=== PATIENT | male | born 1985 | race Caucasian/White ===

== ENCOUNTER 2019-08-08 20:13 | Emergency (ER) | payer BC ==
[~2019-08-08] VITALS: Ht 165.1 cm; Wt 72.6 kg
--- NOTE | 2019-08-08 20:29 | NUR ---
ED Nurse Note: pt presents to ED c/o a GARCIA and neck px. pt reports getting migraines and usually takes imitrex and the pain goes away but when he took it on , the migraine improved but did not fully go away. pt also reports nausea that he went to see his PCP for on and was prescribed zofran that he has not taken yet. pt reports 6/10 neck px that worsens with movement and a a frontal GARCIA that worsens to a 9/10 when he coughs which is something he has never experienced in the past.
[2019-08-08] MEDS ORDERED: Metoclopramide 10mg/2ml Inj IVP ONE (20:45)
[2019-08-08] MEDS ORDERED: DiphenhydrAMINE 50mg/ml Inj IVP ONE (20:45)
[2019-08-08] MEDS ORDERED: Ketorolac 30mg Inj IV ONE (20:45)
[2019-08-08 20:54] LABS: BASOPHILS % (AUTO) 0.4 % (0.0-2.0); EOSINOPHILS % (AUTO) 0.2 % (0.0-3.0); HEMATOCRIT 43.7 % (42.0-52.0); HEMOGLOBIN 15.6 G/DL (14.2-18.0); MEAN CORPUSCULAR VOLUME 85 FL (80-99); MONOCYTES % (AUTO) 9.7 % (1.0-10.0); NEUTROPHILS % (AUTO) 68.7 % (45.0-75.0); PLATELET COUNT 221 K/UL (150-450); RED BLOOD COUNT 5.13 M/UL (4.70-6.10); RED CELL DISTRIBUTION WIDTH 9.8 % (11.6-14.8); WHITE BLOOD COUNT 5.5 K/UL (4.8-10.8)
[2019-08-08 20:55] VITALS: BP 113/89
--- NOTE | 2019-08-08 20:57 | Emergency Room Report ---
History of Present Illness General Chief Complaint: Headache Source: Patient Present Illness HPI Patient presents with a headaches of these had since . Started off that he felt he just had a migraine. He took Imitrex. The pain was somewhat better but he still feels the pain at this time. He is seen his doctor earlier that day because he has had some intermittent episodes of nausea and vomiting during the night. His doctor is ordered some other testing to be done including H. pylori. This headache is different from his usual migraines and that it has lasted 3 days and he also has pain that is increased when he coughs and also when he looks upwards. He denies any weakness. He has slight amount of neck tenderness also on the right lateral muscle. Headache was gradual onset. He has not had his flu shot this year yet. He rates the pain 6/10, pressure and aching more in his right forehead nonradiating. He feels it also behind his eyes. In yarsanism is oriental orthodox noted that he did not look well. No fevers, chills, sore throat, chest pain, palpitations, diarrhea, dysuria, shortness of breath, rashes, depression, anxiety, dizziness. 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: PMH: Agreed; PSxH: Agreed Nursing Documentation-[facility] Past Medical History: No Stated History Review of Systems All Other Systems: negative except mentioned in HPI Physical Exam Vital Signs Date Time Temp Pulse Resp B/P (MAP) Pulse Ox O2 Delivery O2 Flow Rate FiO2 08/08/19 20:15 99.3 102 16 113/89 (97) 97 Room Air Sp02 EP Interpretation: reviewed, normal General Appearance: well appearing, no apparent distress, GCS 15 Head: normocephalic, atraumatic Eyes: bilateral eye normal inspection, bilateral eye PERRL, bilateral eye EOMI ENT: normal pharynx, moist mucus membranes, other - No sinus tenderness Neck: supple, no meningismus, tender - r lateral muscle mass Respiratory: lungs clear, normal breath sounds Cardiovascular #1: regular rate, rhythm Cardiovascular #2: 2+ radial (R) Gastrointestinal: normal inspection, normal bowel sounds, non tender, no mass, non-distended Musculoskeletal: back normal, gait/station normal, normal range of motion Neurologic: alert, oriented x3, 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 Differential includes sinusitis, viral syndrome, influenza, atypical migraine, tension headache, bleed vasculitis, amongst others. Based on the history and the onset bleed is less likely. Evaluation with EKG, CXR, CT the head and labs. EKG normal. CT normal. Chest x-ray normal. CBC and CMP normal. Discussed results with patient. Pain completely resolved. Patient stable for outpatient observation and treatment. Laboratory Tests Test 08/08/19 20:35 White Blood Count 5.5 K/UL (4.8-10.8) Red Blood Count 5.13 M/UL (4.70-6.10) Hemoglobin 15.6 G/DL (14.2-18.0) Hematocrit 43.7 % (42.0-52.0) Mean Corpuscular Volume 85 FL (80-99) Mean Corpuscular Hemoglobin 30.4 PG (27.0-31.0) Mean Corpuscular Hemoglobin Concent 35.7 G/DL (32.0-36.0) Red Cell Distribution Width 9.8 % (11.6-14.8) L Platelet Count 221 K/UL (150-450) Mean Platelet Volume 6.6 FL (6.5-10.1) Neutrophils (%) (Auto) 68.7 % (45.0-75.0) Lymphocytes (%) (Auto) 21.0 % (20.0-45.0) Monocytes (%) (Auto) 9.7 % (1.0-10.0) Eosinophils (%) (Auto) 0.2 % (0.0-3.0) Basophils (%) (Auto) 0.4 % (0.0-2.0) Prothrombin Time 10.4 SEC (9.30-11.50) Prothrombin Time INR 1.0 (0.9-1.1) PTT 26 SEC (23-33) Sodium Level 139 MMOL/L (136-145) Potassium Level 3.7 MMOL/L (3.5-5.1) Chloride Level 100 MMOL/L (98-107) Carbon Dioxide Level 29 MMOL/L (21-32) Anion Gap 10 mmol/L (5-15) Blood Urea Nitrogen 13 mg/dL (7-18) Creatinine 1.1 MG/DL (0.55-1.30) Estimate Glomerular Filtration Rate > 60 mL/min (>60) Glucose Level 104 MG/DL (74-106) Calcium Level 9.3 MG/DL (8.5-10.1) Total Bilirubin 0.7 MG/DL (0.2-1.0) Aspartate Amino Transferase (AST) 24 U/L (15-37) Alanine Aminotransferase (ALT) 37 U/L (12-78) Alkaline Phosphatase 93 U/L (46-116) Total Creatine Kinase 149 U/L (26-308) Total Protein 8.1 G/DL (6.4-8.2) Albumin 4.3 G/DL (3.4-5.0) Globulin 3.8 g/dL Albumin/Globulin Ratio 1.1 (1.0-2.7) Microbiology Date/Time Source Procedure Growth Status 08/08/19 20:35 Nose - Final Complete 08/08/19 20:35 Nose - Final Complete EKG Diagnostic Results Rate: normal Rhythm: NSR ST Segments: no acute changes - Right axis Rhythm Strip Diag. Results EP Interpretation: yes Rhythm: NSR, no PVC's, no ectopy Chest X-Ray Diagnostic Results Chest X-Ray Diagnostic Results : Chest X-Ray Ordered: Yes # of Views/Limited/Complete: 1 View Indication: Other EP Interpretation: Yes Interpretation: no consolidation, no effusion, no pneumothorax Impression: No acute disease Electronically Signed by: Electronically signed by Kameron Asif MD CT/MRI/US Diagnostic Results CT/MRI/US Diagnostic Results : Imaging Test Ordered: Head Impression No bleed or lesions. No air-fluid levels in the sinuses. Last Vital Signs Date Time Temp Pulse Resp B/P (MAP) Pulse Ox O2 Delivery O2 Flow Rate FiO2 08/08/19 21:55 99.3 85 16 115/88 97 Room Air Status: improved Disposition: HOME, SELF-CARE Condition: Improved Scripts Famotidine (PEPCID AC) 20 Mg Tablet 20 MG PO DAILY, #20 TAB Prov: Kameron Asif MD 08/08/19 Kameron Asif MD Aug 08, 2019 20:57
--- NOTE | 2019-08-08 21:02 | NUR ---
ED Nurse Note: pt being transported down to CT via wheelchair. pt is in no acute diistress at this time
[2019-08-08 21:07] LABS: ANION GAP 10 mmol/L (5-15); BLOOD UREA NITROGEN 13 mg/dL (7-18); CALCIUM 9.3 MG/DL (8.5-10.1); CARBON DIOXIDE 29 MMOL/L (21-32); CHLORIDE 100 MMOL/L (98-107); CREATININE 1.1 MG/DL (0.55-1.30); POTASSIUM 3.7 MMOL/L (3.5-5.1); SODIUM 139 MMOL/L (136-145)
--- NOTE | 2019-08-08 21:11 | NUR ---
ED Nurse Note: pt has returned from CT, CXR being done at bedside
[2019-08-08 21:12] LABS: ALANINE AMINOTRANSFERASE 37 U/L (12-78); ALBUMIN 4.3 G/DL (3.4-5.0); ALBUMIN/GLOBULIN RATIO 1.1 (1.0-2.7); ALKALINE PHOSPHATASE 93 U/L (46-116); ASPARTATE AMINO TRANSFERASE 24 U/L (15-37); BILIRUBIN,TOTAL 0.7 MG/DL (0.2-1.0); CREATINE KINASE 149 U/L (26-308)
--- NOTE | 2019-08-08 21:38 | Diagnostic Imaging Report ---
CT HEAD WITHOUT CONTRAST INDICATION: Reason For Exam: H/A Technique: Continuous helical CT scanning of the head was performed without intravenous contrast material. Axial and coronal 5 mm sections were generated. Radiation dose was minimized using automated exposure control DOSE: Total Dose Length Product - DLP 1274.[address] Dose Index - CTDIvol(s) 60 mGy. COMPARISON: None available FINDINGS: There is no acute intracranial hemorrhage, mass effect or cortical edema. The ventricles, cisterns and sulci are normal for age. Visualized mastoid air cells and paranasal sinuses are unremarkable. No focal lesions of the bony calvarium or soft tissues of the scalp are seen. IMPRESSION: No evidence of acute intracranial hemorrhage, mass effect or cortical edema. MRI may be obtained for more sensitive evaluation as clinically indicated. These findings are concordant with the [facility] preliminary report. The CT scanner at [facility] is accredited by the [employer] and the scans are performed using protocols designed to limit radiation exposure to as low as reasonably achievable to attain images of sufficient resolution adequate for diagnostic evaluation.
[2019-08-08] MEDS ORDERED: PEPCID AC20 M2 PO (21:47)
[2019-08-08 21:55] VITALS: BP 115/88
[2019-08-08] MEDS ORDERED: IMITREX5 MG NS (21:55)
[2019-08-08] MEDS ORDERED: VENLAFAXINE HCL25 MG ORAL (21:55)
--- NOTE | 2019-08-08 21:55 | NUR ---
ER DISCHARGE NOTE: Patient is cleared to be discharged per ERMD, pt is aox4, on room air, with stable vital signs. pt was given dc and prescription instructions, pt was able to verbalize understanding, pt id band and iv site removed without complications. pt is able to ambulate with steady gait. pt took all belongings.
--- NOTE | 2019-08-09 10:45 | Diagnostic Imaging Report ---
Indication: Reason For Exam: H/A Technique: Single AP view of the chest. Comparison: None. Findings: The cardiomediastinal silhouette is within normal limits. There is no focal consolidation, pneumothorax or pleural effusion. Osseous structures demonstrate no acute abnormality. IMPRESSION: No radiographic evidence of acute cardiac pulmonary process.
--- NOTE | 2019-08-11 07:29 | Cardiology Report ---
APPROVED REPORT EKG Measurement Heart [id number] MD [id number] Normal sinus rhythm Rightward axis Borderline ECG
== END 2019-08-08 21:55 | disposition home or self-care (01) ==
LOC: EMR 20:53
DX: R51 Headache (principal); R11.10 Vomiting, unspecified; Z88.0 Allergy status to penicillin
CPT/HCPCS: 36415; 70450; 71045; 80053; 82550; 85025; 85610; 85730; 86710; 93005; 96361; 96374; 96375; 99284; J1200; J1885; J2765

== ENCOUNTER 2019-08-09 17:47 | Inpatient (IN) | payer BC ==
[~2019-08-09] VITALS: Ht 170.2 cm; Wt 68.0 kg
[~2019-08-09 17:47] MED LIST: IMITREX5 MG NS; PEPCID AC20 M2 PO; VENLAFAXINE HCL25 MG ORAL
[2019-08-09 17:58] VITALS: BP 125/80
--- NOTE | 2019-08-09 17:58 | NUR ---
ED Nurse Note: Patient came back to the ER c/o headache since 08/06/2019; denies any injury. Pt rates pain at 4/10. Pt is A&O x4, V/S stable with no s/s of acute distress noted at this time. Blood and urine sent down to the lab.
[2019-08-09] MEDS ORDERED: Metoclopramide 10mg/2ml Inj IVP ONE (18:00)
[2019-08-09] MEDS ORDERED: DiphenhydrAMINE 50mg/ml Inj IVP ONE (18:00)
[2019-08-09] MEDS ORDERED: Gadavist 7.5mMol/7.5ml vial IV PRN ×2 (18:00→18:15)
--- NOTE | 2019-08-09 18:17 | Emergency Room Report ---
History of Present Illness General Chief Complaint: Headache Source: Patient Present Illness HPI Patient was seen yesterday with a headache that was unusual for him. He has a history of migraines. This headache started 4 days ago. He initially took Imitrex that helped but the headache persisted. He has had intermittent vomiting. He also had a cough. He felt clammy but not documented any fevers. He took no medications aside from the Imitrex. Usually his migraines are improved after 1 day. This headache has persisted. It had gradual onset. He also has some neck discomfort on the right side. When he coughs the headache is worse and also when he moves his eyes upwards there is increased pain. It is mainly over his right eye where he feels the discomfort deep to his forehead. At this time the pain is 4/10. He has had continued episodes of vomiting during the day today also. There is no hematemesis and no diarrhea. The cough is nonproductive. No hemoptysis. No calf pain or edema. The patient was evaluated yesterday. He was improved with Reglan, Benadryl and Toradol. CT of the head and laboratory were unremarkable. EKG was also significant only for right axis deviation. Chest x-ray was unremarkable. The patient has used an inhaler in the past but does not hear himself wheezing recently. He has been waking intermittently with nausea and vomiting. His doctor has scheduled testing for H pylori next week. No recent travel, mosquito bites. No one in his buddhism with known infectious processes. No family h/o arthritis. This is the history from yesterday: Patient presents with a headaches of these had since . Started off that he felt he just had a migraine. He took Imitrex. The pain was somewhat better but he still feels the pain at this time. He is seen his doctor earlier that day because he has had some intermittent episodes of nausea and vomiting during the night. His doctor is ordered some other testing to be done including H. pylori. This headache is different from his usual migraines and that it has lasted 3 days and he also has pain that is increased when he coughs and also when he looks upwards. He denies any weakness. He has slight amount of neck tenderness also on the right lateral muscle. Headache was gradual onset. He has not had his flu shot this year yet. In buddhism is scientology noted that he did not look well. No fevers, chills, sore throat, chest pain, palpitations, diarrhea, dysuria, abdominal pain, shortness of breath, rashes, depression, anxiety, dizziness. No risk factors for cardiac disease known. 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: PMH: Agreed; PSxH: Agreed Nursing Documentation-PM[facility] Past Medical History: No Stated History Review of Systems All Other Systems: negative except mentioned in HPI Physical Exam Vital Signs Date Time Temp Pulse Resp B/P (MAP) Pulse Ox O2 Delivery O2 Flow Rate FiO2 08/09/19 17:56 98.4 95 15 125/80 (95) 95 Room Air Sp02 EP Interpretation: reviewed, normal General Appearance: well appearing, no apparent distress, GCS 15 Head: normocephalic Eyes: bilateral eye normal inspection, bilateral eye PERRL, bilateral eye EOMI - Pain with looking upwards ENT: normal pharynx, normal voice, moist mucus membranes Neck: supple, no meningismus, tender - Left muscles Respiratory: lungs clear, normal breath sounds Cardiovascular #1: regular rate, rhythm Cardiovascular #2: 2+ radial (R) - good capillary fill Gastrointestinal: normal inspection, normal bowel sounds, non tender, no mass, non-distended Musculoskeletal: back normal, gait/station normal, normal range of motion Neurologic: alert, oriented x3, narrow fabrics weaver III-XII nml as tested, motor strength/tone normal, DTRs symmetric, sensory intact, cerebellar normal, normal gait, speech normal Psychiatric: mood/affect normal Skin: warm/dry, other - R shoulder with minimal rash - maculopapular - streak- like distribution Procedures Critical Care Time Critical Care Time Total Critical Care Time: 60 min bedside evaluation and treatment excludes procedures (EKG). Reason for critical care: + troponin, unexplained headache Possible complications: hypotension, hypertension, [place], shock, arrhythmias, metabolic acidosis, end organ damage, respiratory failure. Interventions: MRA neck, brain, aspirin, Reglan, Benadryl, Tylenol, repeated exams, attempt to transfer and discussions with multiple doctors, radiology aide and .. Course: Patient recalled to ED due to continued headache. Evaluation with repeat labs and MRA neck and brain. + troponin - aspirin given and assessment for possible other treatments.. Attempt to transfer to [facility] ( several calls). Discussion with patient's floor winder. Discussion with PMD. Discussion with and patient. Review of EKG and MRAs with patient and . Repeat evaluations. Questionable R subclavian process evaluated with radiologist tech and radiologist. Repeat evaluation of patient. Discussion with admitting MD. Consultations: nursing staff, radiology aide, admitting MD, [facility] Transfer, patient's PMD, patient's floor winder Performed by: Dr. Asif Tolerated well condition = serious Medical Decision Making Diagnostic Impression: Primary Impression: Elevated troponin Additional Impressions: Headache Qualified Codes: R51 - Headache Ethmoid sinusitis Qualified Codes: J32.2 - Chronic ethmoidal sinusitis ER Course Patient presents with persistent headache associated with cough and vomiting. Differential includes viral syndrome, sinusitis, meningitis, encephalitis amongst others. Patient will be reevaluated with labs and also an MRI of the brain and neck are ordered. The patient will be given Reglan and Benadryl. Considerations for possible lumbar puncture. Called with + troponin. Aspirin ordered. Repeat EKG. Metoprolol not indicated ( doubt angina or occlusive phenomena). Also will withhold heparin/Lovenox as headache and possible vasculitis. EKG was normal sinus rhythm nonspecific ST-T wave changes somewhat rightward axis. With elevated C reactive protein and near normal ESR, infectious process more likely than vasculitis. Steroids not indicated. Patient with 3/10 pain at this time. Tylenol given. Attempt to transfer to [facility]. Discussed with patient's floor winder and primary physician. Suggestion for D- dimer. I declined as I expect it to be positive and patient without symptoms or findings suggestive of PE or clot. Discussion findings with and patient. Discussed in detail with Dr. Baugh. MRA brain with ethmoid sinusitis. MRA neck, no vascular disease. (Discussed abnormality of R subclavian artery with radiologist. [place] to be artifact. Patient and environmental field technician report that with injection of dye, patient had R wrist/ base of thumb pain which resolved spontaneously. Repeat exam with normal pulses and capillary fill R hand.) Lumbar puncture not indicated due to exam and MRA findings. Headache most likely due to ethmoid sinusitis. Discussed treatment with patient and . Antibiotics not indicated. BC and lactate ordered. Repeat troponin ordered. Elevated but trending downwards. Admit telemetry. Laboratory Tests Test 08/09/19 17:55 08/09/19 22:32 White Blood Count 5.2 K/UL (4.8-10.8) Red Blood Count 5.11 M/UL (4.70-6.10) Hemoglobin 15.6 G/DL (14.2-18.0) Hematocrit 43.4 % (42.0-52.0) Mean Corpuscular Volume 85 FL (80-99) Mean Corpuscular Hemoglobin 30.6 PG (27.0-31.0) Mean Corpuscular Hemoglobin Concent 36.0 G/DL (32.0-36.0) Red Cell Distribution Width 10.4 % (11.6-14.8) L Platelet Count 241 K/UL (150-450) Mean Platelet Volume 6.6 FL (6.5-10.1) Neutrophils (%) (Auto) 62.6 % (45.0-75.0) Lymphocytes (%) (Auto) 24.5 % (20.0-45.0) Monocytes (%) (Auto) 11.5 % (1.0-10.0) H Eosinophils (%) (Auto) 1.2 % (0.0-3.0) Basophils (%) (Auto) 0.3 % (0.0-2.0) Erythrocyte Sedimentation Rate 23 MM/HR (0-15) H Prothrombin Time 10.2 SEC (9.30-11.50) Prothrombin Time INR 1.0 (0.9-1.1) PTT 28 SEC (23-33) Urine Color Yellow Urine Appearance Clear Urine pH 8 (4.5-8.0) Urine Specific [place] 1.015 (1.005-1.035) Urine Protein Negative (NEGATIVE) Urine Glucose (UA) Negative (NEGATIVE) Urine Ketones Negative (NEGATIVE) Urine Blood Negative (NEGATIVE) Urine Nitrite Negative (NEGATIVE) Urine Bilirubin Negative (NEGATIVE) Urine Urobilinogen Normal MG/DL (0.0-1.0) Urine Leukocyte Esterase Negative (NEGATIVE) Sodium Level 140 MMOL/L (136-145) Potassium Level 3.7 MMOL/L (3.5-5.1) Chloride Level 103 MMOL/L (98-107) Carbon Dioxide Level 27 MMOL/L (21-32) Anion Gap 10 mmol/L (5-15) Blood Urea Nitrogen 12 mg/dL (7-18) Creatinine 1.0 MG/DL (0.55-1.30) Estimate Glomerular Filtration Rate > 60 mL/min (>60) Glucose Level 91 MG/DL (74-106) Calcium Level 9.2 MG/DL (8.5-10.1) Total Bilirubin 0.7 MG/DL (0.2-1.0) Aspartate Amino Transferase (AST) 28 U/L (15-37) Alanine Aminotransferase (ALT) 42 U/L (12-78) Alkaline Phosphatase 89 U/L (46-116) Total Creatine Kinase 116 U/L (26-308) Troponin I 0.991 ng/mL (0.000-0.056) 0.582 ng/mL (0.000-0.056) C-Reactive Protein, Quantitative 4.0 mg/dL (0.00-0.90) H Total Protein 7.7 G/DL (6.4-8.2) Albumin 4.0 G/DL (3.4-5.0) Globulin 3.7 g/dL Albumin/Globulin Ratio 1.1 (1.0-2.7) EKG Diagnostic Results Rate: normal Rhythm: NSR ST Segments: no acute changes ASA given to the pt in ED: Yes Rhythm Strip Diag. Results EP Interpretation: yes Rhythm: NSR, no PVC's, no ectopy CT/MRI/US Diagnostic Results CT/MRI/US Diagnostic Results #1: Imaging Test Ordered: CT head yesterday Impression Negative for mass, mass-effect or intracranial hemorrhage. Negative for mastoid effusions or air fluid levels in the paranasal sinuses. CT/MRI/US Diagnostic Results #2: Imaging Test Ordered: MRA neck Impression carotids, vertebrals no dissection CT/MRI/US Diagnostic Results #3: Imaging Test Ordered: MRA brain Impression No acute infarct hemorrhage or hydrocephalus. Mild ethmoid sinus mucosal disease. Last Vital Signs Date Time Temp Pulse Resp B/P (MAP) Pulse Ox O2 Delivery O2 Flow Rate FiO2 08/09/19 22:30 98.4 82 15 135/88 98 Room Air Status: improved Disposition: ADMITTED INPATIENT Condition: Serious Kameron Asif MD Aug 09, 2019 18:17
[2019-08-09 18:37] LABS: BILIRUBIN, URINE NEGATIVE (NEGATIVE); GLUCOSE, URINE (UA) NEGATIVE (NEGATIVE); KETONES,URINE NEGATIVE (NEGATIVE); LEUKOCYTE ESTERASE ,URINE NEGATIVE (NEGATIVE); NITRITE,URINE NEGATIVE (NEGATIVE); PH,URINE 8 (4.5-8.0); PROTEIN,URINE NEGATIVE (NEGATIVE); UROBILINOGEN,URINE NORMAL MG/DL (0.0-1.0)
[2019-08-09 18:41] LABS: APPEARANCE,URINE CLEAR; COLOR,URINE YELLOW
[2019-08-09 18:43] LABS: ANION GAP 10 mmol/L (5-15); BLOOD UREA NITROGEN 12 mg/dL (7-18); CALCIUM 9.2 MG/DL (8.5-10.1); CARBON DIOXIDE 27 MMOL/L (21-32); CHLORIDE 103 MMOL/L (98-107); POTASSIUM 3.7 MMOL/L (3.5-5.1); SODIUM 140 MMOL/L (136-145)
[2019-08-09 18:47] LABS: ALANINE AMINOTRANSFERASE 42 U/L (12-78); ALBUMIN/GLOBULIN RATIO 1.1 (1.0-2.7); ALKALINE PHOSPHATASE 89 U/L (46-116); ASPARTATE AMINO TRANSFERASE 28 U/L (15-37); BILIRUBIN,TOTAL 0.7 MG/DL (0.2-1.0); CREATINE KINASE 116 U/L (26-308)
[2019-08-09 18:49] LABS: BASOPHILS % (AUTO) 0.3 % (0.0-2.0); EOSINOPHILS % (AUTO) 1.2 % (0.0-3.0); HEMATOCRIT 43.4 % (42.0-52.0); HEMOGLOBIN 15.6 G/DL (14.2-18.0); LYMPHOCYTES % (AUTO) 24.5 % (20.0-45.0); MEAN CORPUSCULAR VOLUME 85 FL (80-99); MONOCYTES % (AUTO) 11.5 % (1.0-10.0); NEUTROPHILS % (AUTO) 62.6 % (45.0-75.0); PLATELET COUNT 241 K/UL (150-450); RED BLOOD COUNT 5.11 M/UL (4.70-6.10); RED CELL DISTRIBUTION WIDTH 10.4 % (11.6-14.8); WHITE BLOOD COUNT 5.2 K/UL (4.8-10.8)
--- NOTE | 2019-08-09 19:15 | NUR ---
HAND-OFF: Report given to FAUSTINA Hoskins.
--- NOTE | 2019-08-09 19:35 | NUR ---
ED Nurse Note: Recieved report from am nurse to resume care, pt in bed awake, alert and oriented x 4, has patent iv line with lfuids infusing, all labs sent and meds given, pt on cardiac monitoring, will resume care as ordered and continue to closely monitor, pt denies cp, no sob or labored breathing noted.
[2019-08-09 21:00] VITALS: BP 135/88
--- NOTE | 2019-08-09 21:00 | NUR ---
ED Nurse Note: Pt returned from imaging having MRI done, no acute changes, IV site intact and patent, pt replaced on cardiac monitoring, remains with mild headache at 4/10 but declines need or wants meds, pt at bedside, will resume care as ordered and continue to closely monitor.
--- NOTE | 2019-08-09 21:34 | Diagnostic Imaging Report ---
Indication: Headache Technique: Study was performed in a 1.5 María magnet. Gadolinium-enhanced MR angiography of the extracranial portions of both carotid arteries performed from the thoracic arch to the skull base. Maximum intensity projection images displayed in different projections. Comparison: None Findings: The extracranial portions of the carotid arteries below the skull base appear widely patent showing no significant stenosis. This includes the common carotid arteries from their origin as well as the extracranial portions of both internal carotid arteries. External carotid arteries are unremarkable. The extracranial portions of both vertebral arteries appear normal. The aortic arch vessels are well seen and appear unremarkable including the left as subclavian artery, the innominate artery and proximal right subclavian artery. IMPRESSION: Normal gadolinium-enhanced MR angiogram of the neck
--- NOTE | 2019-08-09 21:40 | Diagnostic Imaging Report ---
Indication: Headache Technique: The head was imaged in a 1.5 María magnet. Sequences obtained include sagittal and axial T1 FLAIR, axial T2 fast spin echo with fat saturation, axial T2 FLAIR, diffusion and ADC map. Gadolinium-enhanced axial and coronal T1 FLAIR obtained also. 3-D [id number] of the brain Comparison: None Findings: The size, contour, and configuration of the sulci, ventricles, and basal cisterns appear normal. Vásquez-white differentiation is normal. There is no restricted diffusion. There is no mass effect, midline shift, edema, or hemorrhage. There are no abnormal extra-axial or intra-axial fluid collections. The corpus callosum is unremarkable. The brainstem and cerebellum are unremarkable. The sella is unremarkable. Bone marrow signal within the visualized osseous structures appears age appropriate and unremarkable otherwise. No abnormal enhancement is identified. 3-D [id number] of the brain performed. Intracranial portions of both internal carotid arteries and the vertebrobasilar arteries appear normal. Anterior circulation vessels including the anterior and middle cerebral arteries appear normal. [place] is intact. Posterior cerebral arteries are unremarkable. No high-grade stenosis or occlusion identified. No aneurysm identified. Impression: Negative MRI brain with and without contrast. Negative MRA of the brain.
--- NOTE | 2019-08-09 21:41 | Diagnostic Imaging Report ---
Indication: Headache Technique: The head was imaged in a 1.5 María magnet. Sequences obtained include sagittal and axial T1 FLAIR, axial T2 fast spin echo with fat saturation, axial T2 FLAIR, diffusion and ADC map. Gadolinium-enhanced axial and coronal T1 FLAIR obtained also. 3-D dvjy-wv-exeqvb of the brain Comparison: None Findings: The size, contour, and configuration of the sulci, ventricles, and basal cisterns appear normal. Vásquez-white differentiation is normal. There is no restricted diffusion. There is no mass effect, midline shift, edema, or hemorrhage. There are no abnormal extra-axial or intra-axial fluid collections. The corpus callosum is unremarkable. The brainstem and cerebellum are unremarkable. The sella is unremarkable. Bone marrow signal within the visualized osseous structures appears age appropriate and unremarkable otherwise. No abnormal enhancement is identified. 3-D fetg-mx-glqvmo of the brain performed. Intracranial portions of both internal carotid arteries and the vertebrobasilar arteries appear normal. Anterior circulation vessels including the anterior and middle cerebral arteries appear normal. [place] of [place] is intact. Posterior cerebral arteries are unremarkable. No high-grade stenosis or occlusion identified. No aneurysm identified. Impression: Negative MRI brain with and without contrast. Negative MRA of the brain.
--- NOTE | 2019-08-09 22:10 | NUR ---
ED Nurse Note: PT BEING ADMITTED TO HOSPITAL, VERBAL REPORT CALLED TO FAUSTINA CRUZ, PT IN BED AWAKE AND ALERT, DENIES ANY CHAGES OR ICNREASED DISTRESS, SPOUSE AT BEDSIDE AND AWARE OF ADMISISON, IV SITE PATENT, PT TO BE MEDICATED FOR PAIN, TROPONIN LEVEL TO BE RE-DRAWN, AND PT TO GO TO FLOOR BED WHEN AVAILABLE.
--- NOTE | 2019-08-09 22:30 | NUR ---
HAND-OFF: Report given to FAUSTINA CRUZ, PT TAKEN TO FLOOR BED VIA [place] WITH ACLS PROTOCOLS WITH RN AND HERMES CASANOVA OR CHANGES NOTED.PT HAS ALL BELONGINGS.
[2019-08-10] VITALS (7 sets, daily range): BP systolic 121–143; BP diastolic 72–99
--- NOTE | 2019-08-10 | NUR ---
NURSE NOTES: Pt arrived on unit via gurney from ER. Got report from Aidee WEEMS. Denies any chest pain or any pain. Denies any n/v or SOB. Pt is fully oriented and able to answer all of my questions. Pt is ambulatory with steady and strong gait. No skin issues noted. Pt complains of headache Tylenol was given. Pt resting in bed comfortably. VSS T:98.7 HR:82 R:16 BP:135/90 O2:99% on room air. color television console monitor placed on pt and is Sinus Rhythm on the monitor. Pt resting in bed comfortably. Bed in low and locked position, call light within reach, bedside table within reach. Continue to monitor. Paged Dr. Amin for orders. Also notified Dr. Amin initial Troponin 0.991 and second Troponin 0.582. Orders given and placed.
--- NOTE | 2019-08-10 07:00 | NUR ---
HAND-OFF: Report given to Aria WEEMS.
--- NOTE | 2019-08-10 07:36 | NUR ---
NURSE NOTES: Received report from FAUSTINA Moeller. Patient in bed resting, no active s/s cardiac, respiratory distress noticed at this time. Patient on room air, AOx4. IV on right AC 20G, asymptomatic, patent, intact, IV fluid running as prescribed rate. Endorsed MD aware of troponin level. Bed in lowest position, side rails upx3, call light within reach. Will continue to monitor.
[2019-08-10] MEDS: Aspirin EC 325mg tab ORAL SCH (08:25)
[2019-08-10] MEDS ORDERED: Venlafaxine 25mg tab ORAL SCH ×2 (09:00→11:06)
--- NOTE | 2019-08-10 09:07 | NUR ---
*-* NO INSURANCE INFORMATION IN THE BAR UNABLE TO SEND CLINICALS OR REVIEWS *-*
--- NOTE | 2019-08-10 10:45 | NUR ---
NURSE NOTES: Patient c/o headache, stated Tylenol is not enough for the pain. Per Dr. Baugh, [place] 5mg PO QID prn. Order noted, entered, carried out.
--- NOTE | 2019-08-10 11:02 | NUR ---
NURSE NOTES: Dr. Baugh made aware patient was taking 225mg PO daily Venlafaxine at home, stated desire to continue same dosage. Per Dr. Baugh, 225mg PO daily Venlafaxine. Order noted, entered, carried out.
[2019-08-10] MEDS ORDERED: Venlafaxine XR 150mg cap ORAL SCH (11:06)
[2019-08-10] MEDS: HYDROcodone/Acetamin 5/325 tab ORAL PRN ×2 (11:13→18:47)
--- NOTE | 2019-08-10 12:58 | Consultation ---
Consult Note Consult Note Consult dictated [id number] Imp: Migraine H/A Depression N/V- ?etio Elevated troponins with normal EKG and echo - P; ASA Add Protonix Sistamibi stress test in AM. Gal Garza MD Aug 10, 2019 12:58
--- NOTE | 2019-08-10 13:09 | History & Physical ---
History and Physical History & Physicial dict Gonzalo Baugh MD Aug 10, 2019 13:09
--- NOTE | 2019-08-10 13:12 | NUR ---
NURSE NOTES: Per Dr. Garza, Protonix 40mg PO daily, Treadmill stress test with nuclear med. Order noted, entered, carried out. Will continue to monitor.
--- NOTE | 2019-08-10 13:19 | NUR ---
NURSE NOTES: Patient still c/o pain in sinus, requesting for decongestant. Per Dr. Baugh, Sudafed 60mg BID prn. Order noted, entered, carried out.
[2019-08-10] MEDS ORDERED: Pseudoephedrine 30mg tab ORAL PRN (13:45)
--- NOTE | 2019-08-10 14:28 | NUR ---
NURSE NOTES: Patient stated would like to speak with senior case manager regarding insurance question. Called mid level project manager, left message.
--- NOTE | 2019-08-10 14:30 | NUR ---
NURSE NOTES: Paged Dr. Garza regarding patient concern about stress test for insurance issue. Per MD, would like to speak with patient, call transferred to the patient. After the call, patient stated, still wanted to speak with clinical study manager.
--- NOTE | 2019-08-10 15:51 | NUR ---
*-* INSURANCE *-* ALL AVAILABLE CLINICALS HAVE BEEN FAXED TO: Jorge No Ref# yet CM: Aaron ph#[phone] fax#[phone] & [facility] Debi [place] yet Tracking#[id number]
--- NOTE | 2019-08-10 16:00 | NUR ---
NURSE NOTES: Paged Pharmaceutical Assistant, Kristen, regarding patient would like to speak with continuous pillowcase cutter about insurance questions. Per patient, he spoke with insurance company and they told the patient to speak with continuous pillowcase cutter. utility division project manager made aware, stated will come down when able.
--- NOTE | 2019-08-10 16:34 | NUR ---
CASE MANAGEMENT:REVIEW 34 YR OLD MALE PRESENTED TO ER CC; HEADACHE SI: POSITIVE TROPONIN ETHMOID SINUSITIS 98.4 95 15 125/80 95% ON RA TROPONIN(+) 0.991 IS: IV BENADRYL IV REGLAN 1L NS BOLUS X1 ASA PO MRI BRAIN MRA BRAIN AND NECK BLOOD CX : TELEMETRY STATUS
--- NOTE | 2019-08-10 19:45 | NUR ---
NURSE NOTES: Patient c/o chest pain 8/10 radiating to right hand, numbness. EKG done ST 119, Oxygen 2L applied, Dr. Garza called. MD made aware, discontinue Sudafed, continue stress test for tomorrow. Order noted, entered, carried out.
--- NOTE | 2019-08-10 19:48 | NUR ---
HAND-OFF: Report given to FAUSTINA Luis.
--- NOTE | 2019-08-10 19:58 | NUR ---
NURSE NOTES: Received pt from FAUSTINA Knapp. Pt awake, alert, and talkative. Bed in lowest position. Call light within reach. Will continue to monitor.
--- NOTE | 2019-08-10 21:15 | Consultation ---
DATE OF CONSULTATION: 08/10/2019 CARDIOLOGY CONSULTATION CONSULTING PHYSICIAN: Gal Garza M.D. ATTENDING PHYSICIAN: 1. Gonzalo Baugh M.D. 2. Ash Hopkins M.D. REASON FOR CONSULTATION: Elevated troponin levels. 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 The patient was initially seen in the emergency room on 08/08/2019 for severe headache and discharged home, but returned the following day because of persistent headache. At that time, further workup was initiated including MRA and no significant findings were noted. 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 He was recalled on the following day because of persistent headache, which has lasted three days. At that time, workup including an MRI and MRA as well as troponin levels were performed and MRA did not show evidence of acute process except for sinusitis and troponin levels were slightly elevated with initial troponin level of 0.99 with a subsequent level of 0.58. The patient was treated with Benadryl and Reglan for his migraine headache. He was also started on aspirin because of elevated troponin. The patient denied any chest pain or dyspnea on exertion and has had no history of coronary artery disease. His lifestyle is sedentary and does not exercise, but denies chest pain with climbing stairs or playing with his children. He does not smoke and does not know his cholesterol level, but he has recently been discovered to have elevated blood pressure. FAMILY HISTORY: Significant for coronary artery disease in his father starting at age 50. PAST MEDICAL HISTORY: 1. Migraine headache. 2. Nausea and vomiting for the past few months of unknown etiology. 3. Depression. MEDICATIONS: The patient takes Effexor 75 mg and 150 mg daily. He has also been started on aspirin 325 mg daily, Zofran 4 mg p.r.n., and Tylenol p.r.n. ALLERGIES: To penicillin. REVIEW OF SYSTEMS: GENERAL: Denies weight loss, fever, chills, or night sweats. HEENT: Complains of frequent headaches for which he takes Imitrex as needed. CARDIOVASCULAR: Denies chest pain, palpitations, PND, orthopnea, or lower extremity edema. GENITOURINARY: Denies dysuria or hematuria. GASTROINTESTINAL: Complains of frequent nausea and vomiting especially at night. PHYSICAL EXAMINATION: VITAL SIGNS: Blood pressure is 121/77, temperature afebrile, and heart rate 64. GENERAL: The patient is alert and oriented, pleasant male, in no apparent distress. HEENT: Unremarkable. NECK: Supple. LUNGS: Without rales or wheezes. CARDIAC: S1-S2 are normal without S3, S4. Jugular venous pressure is normal. ABDOMEN: Soft, with mild diffuse tenderness and slight distention. Bowel sounds are present without hepatosplenomegaly. EXTREMITIES: Without cyanosis, clubbing, or edema. There is no calf tenderness or palpable cords. LABORATORY DATA: Reviewed. Troponin levels were 0.99, 0.58, and most recently 0.675. Electrolytes are within normal limits. Potassium is 3.7. Creatinine is 1.0. Liver function tests within normal limits. C-reactive protein is 4.0. PT and PTT are within normal limits. Hemoglobin is 15.6, hematocrit 43.4, WBC 5.2, and platelet count 241,000. EKG shows sinus rhythm with poor R-wave progression in precordial leads, but otherwise unremarkable. An echocardiogram was performed and the preliminary report shows ejection fraction of 65% with normal LV function. IMPRESSION: 1. Headaches, rule out migraine versus vascular headaches. 2. Depression. 3. Nausea and vomiting, etiology unclear. 4. Elevated troponin levels, rule out ischemia versus other etiology for troponin elevation. At this point, patient is asymptomatic with normal EKG and normal echocardiogram, but still need to rule out ischemia and underlying coronary artery disease especially in view of his family history of coronary artery disease. PLAN AND SUGGESTION: We will continue aspirin and monitor for cardiac arrhythmias. The patient will be scheduled for a sestamibi stress test in the morning to rule out significant ischemia. The patient is in the process of being evaluated for transfer to [facility] due to his insurance and if he is transferred then same test may be done at [facility]. We will start the patient on Protonix for treatment of possible peptic ulcer disease, gastritis, or hyperacidity. Dr. Hopkins and Dr. Baugh, thank you for allowing me to participate in the care of this patient. I will be happy to follow with you as necessary. Gal Garza M.D. DR: RICHARD JOB#: [id number] CC: Dr. Ash Hopkins
--- NOTE | 2019-08-10 22:30 | History and Physical Report ---
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 He has a history of migraine, but he stated it did not improve with his migraine medications. He was evaluated including CT brain and laboratory studies, which were negative. He was given medications and discharged home. He had body aches and sore throat. The emergency doctor called him back the next day, on August 09, 2019 and he stated that he was still not feeling well. He was requested to return to the emergency department earlier. EKG showed nonspecific loss of anterior forces and troponin was elevated, although the patient had no cardiac symptoms or chest pain. Admission was recommended. MRI and MRA of the brain was negative. He continues to have moderately severe headache. He now has some cough, which causes the head pain to be worse. He has some sore throat and muscle aches. PAST MEDICAL HISTORY: He has had recurrent problems with vomiting. Evaluation so far is negative. He has had borderline hypertension in the past, but he is on no medication for this. MEDICATIONS: Include venlafaxine and Imitrex. ALLERGIES: Penicillin. PAST SURGICAL HISTORY: Negative. REVIEW OF SYSTEMS: Otherwise unremarkable. SOCIAL HISTORY: He does not drink or smoke. He lives with and children . PHYSICAL EXAMINATION: GENERAL: The patient is alert and responds appropriately. VITAL SIGNS: Stable. His blood pressure is normal. He has no fever. HEENT: Head is normocephalic. NECK: He has no jugular venous distention. Pupils, the eyes show no scleral icterus. The extraocular movements are intact. Pupils are equal and round. The neck is supple. CHEST: Clear. CARDIAC: Rhythm is regular. The are no rubs or gallop. ABDOMEN: Soft and nontender. No liver or spleen enlargement noted. EXTREMITIES: No clubbing, cyanosis, or edema. NEUROLOGIC: Able to move all 4 extremities with equal strength. Cranial nerves are intact. LABORATORY STUDIES: Reviewed. Troponin is elevated at 0.99. IMPRESSION: 1. Abnormal EKG and elevated troponin without symptoms, possible myocarditis, possible acute coronary syndrome. 2. Migraine headaches. 3. Cough and myalgia consistent with viral syndrome. DISCUSSION AND PLAN: Dr. Garza was requested to see him in consultation. An echocardiogram has been completed and is found to be normal. The patient will be evaluated with serial troponins. Gonzalo Baugh M.D. DR: MARVA JOB#: [id number] CC: Dr. Garza
[2019-08-11 04:00] VITALS: BP 135/77
[2019-08-11] MEDS: HYDROcodone/Acetamin 5/325 tab ORAL PRN (06:06)
--- NOTE | 2019-08-11 07:20 | NUR ---
NURSE NOTES: Received report from FAUSTINA Luis. The patient is resting on the bed without acute distress or shortness of breath. The patient's bed in the lowest position, call light in reach, and fall and aspiration precaution reinforced. IV site intact and patent. The patient is scheduled for Treadmill stress test today, and the patient got educated. Will continue plan of care.
--- NOTE | 2019-08-11 07:24 | NUR ---
HAND-OFF: Report given to FAUSTINA Wagner. Pt stable.
--- NOTE | 2019-08-11 07:26 | Cardiology Report ---
APPROVED REPORT EKG Measurement Heart [id number] [id number] Normal sinus rhythm Possible Anterior infarct, age undetermined Abnormal ECG
--- NOTE | 2019-08-11 07:45 | Cardiology Report ---
APPROVED REPORT EXAM: Two-dimensional and M-mode echocardiogram with Doppler and color Doppler. INDICATION Abnormal card. function study M-Mode DIMENSIONS IVSd1.1 (0.7-1.1cm)Left Atrium (MM)3.7 (1.6-4.0cm) LVDd4.7 (3.5-5.6cm)Aortic Root2.4 (2.0-3.7cm) PWd1.0 (0.7-1.1cm)Aortic Cusp Exc.1.8 (1.5-2.0cm) LVDs2.8 (2.5-4.0cm) PWs1.4 cm Normal left ventricular chamber size, systolic function and wall motion. Left ventricular ejection fraction estimated to be 65 %. No evidence of pericardial effusion. All other cardiac chamber sizes are within normal limits. Mild focal aortic valve sclerosis with adequate cusp excursion. Mildly thickened mitral valve leaflets with normal excursion. Mild mitral annulus and aortic root calcification. Normal pulmonic valve structure. Normal tricuspid valve structure. IVC at normal size with physiologic collapse. A color flow and spectral Doppler study was performed and revealed: Trace mitral regurgitation. Mitral inflow indicates normal left ventricular diastolic function. Trace tricuspid regurgitation. Tricuspid systolic velocities suggests peak right ventricular systolic pressure of 12 mmHg. Pulmonic regurgitation present.
[2019-08-11 08:00] VITALS: BP 127/70
--- NOTE | 2019-08-11 08:00 | NUR ---
NURSE NOTES: Notified Dr. Baugh and Dr. Garza regarding contraindication of treadmill stress test due to elevated Troponin #1. Per Dr. Garza, okay to proceed on treadmill stress test. The patient is free from chest pain or shortness of breath. Will continue plan of care.
--- NOTE | 2019-08-11 08:30 | NUR ---
NURSE NOTES: The patient successfully completed first step of Treadmill stress test. The patient tolerated well. The second step of treadmill stress test will happen around 1200 to 1230. Will continue plan of care.
--- NOTE | 2019-08-11 08:31 | NUR ---
Attempted to start first part of NM Myocardial Perfusion scan(nuclear stress test). Was instructed to wait by FAUSTINA Wagner because the pt may be transferred to [facility]. Addendum: 08/11/19 at 0903 by JENNIFFER BANKS Per lazaro Rose to proceed
[2019-08-11] MEDS: Aspirin EC 325mg tab ORAL SCH (08:55)
[2019-08-11] MEDS ORDERED: Venlafaxine XR 75mg cap ORAL SCH (09:00)
[2019-08-11] MEDS ORDERED: Venlafaxine XR 150mg cap ORAL SCH (09:00)
--- NOTE | 2019-08-11 10:34 | NUR ---
CASE MANAGEMENT:REVIEW 08/11/19 SI: ELEVATED TROPONIN POSSIBLE MYOCARDITIS. POSSIBLE ACS.MIGRAINE HEADACHES FEBRILE LAST NIGHT 100.0 AND 100.2 97.0 77 20 127/70 97% ON RA TROPONIN(+) 0.991-->0.582-->0.675-->PENDING FOR TODAY IS: EFFEXOR PO QD PROTONIX PO QD NORCO PO QID PRN PEPCID PO QD ASA PO QD IVF@50/HR IV ZOFRAN Q6HRS PRN : TELEMETRY STATUS DCP: FROM HOME PLAN: SCHEDULED FOR CARDIAC STRESS TEST FOR TODAY
--- NOTE | 2019-08-11 10:40 | NUR ---
NURSE NOTES: Notified Dr. Baugh and Dr. Garza regarding stat Troponin result that just got resulted now. No new order yet. The patient is waiting for 2nd step of stress test. Will continue plan of care.
--- NOTE | 2019-08-11 11:56 | Pulmonology Progress Note ---
Assessment/Plan Assessment/Plan 1. Abnormal EKG and elevated troponin, possible myocarditis, possible acute coronary syndrome. 2. Migraine headaches. 3. Cough and myalgia consistent with viral syndrome. troponin trending down echo neg stress test today prob dc after above Subjective Constitutional: Reports: chills, fatigue Cardiovascular: Reports: chest pain Neurologic: Reports: headache Allergies: Coded Allergies: PENICILLINS (Verified Allergy, Unknown, 08/08/19) Objective Last 24 Hour Vital Signs Date Time Temp Pulse Resp B/P (MAP) Pulse Ox O2 Delivery O2 Flow Rate FiO2 08/11/19 09:00 Room Air 08/11/19 08:00 82 08/11/19 08:00 98.1 77 20 127/70 (89) 97 08/11/19 04:00 97.0 84 20 135/77 (96) 99 08/11/19 04:00 63 08/11/19 00:00 81 08/10/19 23:58 98.9 98 20 143/99 (114) 100 08/10/19 23:02 98.9 08/10/19 22:31 100.2 08/10/19 21:00 Room Air 08/10/19 20:00 115 08/10/19 20:00 100.0 103 21 142/78 (99) 100 08/10/19 16:00 98.1 82 18 121/72 (88) 96 08/10/19 16:00 84 08/10/19 12:00 97.5 67 18 126/88 (101) 95 08/10/19 12:00 84 Intake and Output 08/10/19 08/11/19 19:00 07:00 Intake Total 480 ml Balance 480 ml Intake Oral 480 ml # Voids 2 4 General Appearance: no acute distress HEENT: atraumatic Respiratory/Chest: lungs clear Cardiovascular: normal rate Microbiology Date/Time Source Procedure Growth Status 08/09/19 23:55 Blood Blood Culture - Preliminary NO GROWTH AFTER 24 HOURS Resulted 08/09/19 23:50 Blood Blood Culture - Preliminary NO GROWTH AFTER 24 HOURS Resulted Laboratory Tests 08/11/19 08:45: Troponin I 0.456H Current Medications Medications (Trade) Dose Ordered Sig/Kelsy Route PRN Reason Start Time Stop Time Status Last Admin Dose Admin Acetaminophen (Tylenol) 650 mg Q6H PRN ORAL Mild Pain/Temp > 100.5 08/09/19 23:45 09/08/19 23:44 08/11/19 10:06 Acetaminophen/ Hydrocodone Bitart ([place] 5/325) 1 tab QIDPRN PRN ORAL For Pain 08/10/19 11:15 08/17/19 11:14 08/11/19 06:06 Aspirin (Ecotrin) 325 mg DAILY ORAL 08/10/19 09:00 09/09/19 08:59 08/11/19 08:55 Famotidine (Pepcid) 20 mg DAILY ORAL 08/10/19 09:00 09/09/19 08:59 08/11/19 08:56 Gadobutrol (Gadavist) 7.5 mmol NOW PRN IV Radiology Procedure 08/09/19 18:00 08/13/19 17:50 Gadobutrol (Gadavist) 7.5 mmol NOW PRN IV Radiology Procedure 08/09/19 18:15 08/12/19 18:04 Ondansetron HCl (Zofran ODT) 4 mg Q6H PRN ORAL Nausea & Vomiting 08/09/19 23:45 09/08/19 23:44 08/11/19 10:10 Pantoprazole (Protonix) 40 mg DAILY ORAL 08/11/19 09:00 09/10/19 08:59 08/11/19 08:56 Sodium Chloride 1,000 ml @ 50 mls/hr Q20H IV 08/09/19 23:45 09/08/19 23:44 08/10/19 18:47 Venlafaxine HCl (Effexor-XR) 75 mg DAILY ORAL 08/11/19 09:00 09/10/19 08:59 08/11/19 08:56 Venlafaxine HCl (Effexor-XR) 150 mg DAILY ORAL 08/11/19 09:00 09/10/19 08:59 08/11/19 08:55 Gonzalo Baugh MD Aug 11, 2019 11:56
[2019-08-11 12:00] VITALS: BP 123/85
--- NOTE | 2019-08-11 12:34 | NUR ---
NURSE NOTES: The patient is about to start treadmill stress test. The patient is stable without acute distress or shortness of breath. The patient's vital signs has been stable. Notified Dr. Garza and Dr. Baugh regarding elevated Troponin and contraindication. Per Dr. Garza, continue on testing. The primary nurse is next to the patient during the test. Will continue plan of care.
--- NOTE | 2019-08-11 13:16 | NUR ---
NURSE NOTES: Completed treadmill stress test in a safe manner. The patient is safely back to the floor. The patient is stable without acute distress or shortness of breath. Will continue plan of care.
--- NOTE | 2019-08-11 14:26 | NUR ---
NM Myocardial perfusion scan complete.
--- NOTE | 2019-08-11 14:29 | Diagnostic Imaging Report ---
Indications: Chest pain Technique: Single day single isotope protocol utilized. Initially, resting images obtained using IV administration 10.7 millicuries 99M technetium Myoview. Subsequently, patient underwent treadmill stress testing. See cardiology report for details. During exercise, IV administration 32.8 mCi 99 M technetium Myoview. SPECT and planar images obtained. SPECT images gated to 8 phases of the cardiac cycle were also obtained, and reformatted into cine images for evaluation of ejection fraction. Comparison: none Findings: Per cardiology report, patient experienced no chest pain during exercise. Per cardiology report, resting EKG demonstrates normal sinus rhythm. Patient achieved a heart rate of 166 bpm, in excess of the target heart rate of 156 bpm. Exercise stopped as patient achieved adequate heart rate. No ST changes noted during exercise. Imaging demonstrates normal poststress perfusion. No fixed nor reversible perfusion defects are demonstrated. Normal cardiac chamber size. Calculated post stress ejection fraction 69%. No focal wall motion abnormality demonstrated Impression: Nonischemic clinical response to pharmacologic stress, per cardiology report Nonischemic electrocardiographic response to pharmacologic stress, per cardiology report No imaging findings to suggest ischemia, at level of stress achieved. Calculated post stress ejection fraction 69%
--- NOTE | 2019-08-11 15:51 | NUR ---
*-* INSURANCE *-* ALL AVAILABLE CLINICALS HAVE BEEN FAXED TO: Av No Ref# yet CM: Aaron ph#[phone] fax#[phone] & Christopher Carrera CM yet Tracking#[id number] Addendum: 08/13/19 at 1429 by FAUZIA CESAR CM AV REF# [id number]
[2019-08-11 16:00] VITALS: BP 120/71
--- NOTE | 2019-08-11 16:12 | NUR ---
NURSE NOTES: Per Dr. Baugh, cleared from Dr. Garza and Dr. Baugh as treadmill stress test was negative. Dr. Baugh ordered the patient to be discharged back to home with self care and home medication. Will carry out the order now.
[2019-08-11] MEDS ORDERED: EFFEXOR XR150 MG ORAL (16:22)
--- NOTE | 2019-08-11 17:00 | NUR ---
NURSE NOTES: The patient got safely discharged back to home with self-care per Dr. Baugh's order. The patient has been stable in terms of vital signs and physical symptoms. The patient is alert and oriented x4. The discharge instruction given to the patient and signed by the patient. The patient's belongings checked with the patient and signed by the patient. Home medication that he brought from home gave back to the patient. The patient signed for medical record release form. The patient's IV, nameband, and tele monitoring box removed by the primary nurse. Notified Florence, the spouse, regarding the patient's discharge. Florence, the spouse, picked up the patient so that the patient can be safely back home with support. In short, the patient safely back to home with self-care per Dr. Baugh's order with Florence, the spouse's support.
--- NOTE | 2019-08-12 11:01 | Discharge Summary ---
Discharge Summary Discharge Summary _ DATE OF ADMISSION: 08/09/2019 DATE OF DISCHARGE: 08/11/2019 DISCHARGED BY: Dr. Baugh REASON FOR ADMISSION: 34 years old male past medical history of borderline hypertension in the past, not on any medication, migraine headaches, recurrent vomiting, presented to emergency department complaining of severe headaches 2 days ago . Patient reported that migraine medications did not work for this pain. Patient was evaluated at that time, including laboratory studies and CT of the brain, which were all negative. Patient received medication and was discharged home. Patient reported body aches and sore throat. He stayed in the bed, but still did not feel well. Patient was advised to return to emergency department. Upon evaluation noted elevated troponin -0.991. ECG revealed sinus rhythm with poor R-wave progression in precordial leads, but otherwise unremarkable. Patient denied any chest pain. MRI and MRA of the brain and neck were negative. Laboratory work-up revealed no leukocytosis, stable hemoglobin and hematocrit. Lactic acid 1.7 . Urinalysis revealed no evidence of UTI. Influenza screen test, done on previous emergency room visit , was negative. Patient was subsequently admitted for further management due to elevated troponin. CONSULTANTS: second worker Dr. Garza [facility] COURSE: Patient admitted to telemetry floor. Supervisor Title consulted. Serial troponin trending down , last troponin - 0.456. Patient continued to deny chest pain. Echocardiogram demonstrated preserved ejection fraction 65%. No evidence of pericardial effusion. No evidence of wall motion abnormality. Right ventricular systolic pressure of 12. Blood pressure was closely monitored and remained stable. Per second worker , patient was asymptomatic , but he would still need to rule out for ischemia and underlying coronary artery disease, given family history of coronary artery disease ( father at age of 50). Patient subsequently undergone myocardial perfusion scan test , which was nonischemic with calculated post-stress ejection fraction of 69%. Patient was on antiplatelet therapy with aspirin. Telemetry showed sinus rhythm. Troponin trending down, possible myocarditis. Cough and myalgias consistent with viral syndrome. Troponin trending down. Echo and stress test negative. Patient was discharged home . Outpatient follow-up with her primary care provider. FINAL DIAGNOSES: Elevated troponin Possible myocarditis Possible ACS Migraine headaches Cough and myalgia , consistent with viral syndrome DISCHARGE MEDICATIONS: See Medication Reconciliation list. DISCHARGE INSTRUCTIONS: Patient was discharged home . Follow up with primary care provider in one week. I have been assigned to dictate discharge summary for this account. I was not involved in the patient's management. Anisha Regan NP Aug 12, 2019 11:01
--- NOTE | 2019-08-13 15:15 | NUR ---
*-* INSURANCE *-* ALL AVAILABLE CLINICALS HAVE BEEN FAXED TO: Jorge No Ref# yet CM: Aaron ph#[phone] fax#[phone] [facility] REF# [id number] & [facility] Debi [place] yet Tracking#[id number] #[phone]
== END 2019-08-11 17:00 | disposition home or self-care (01) | DRG 103 ==
LOC: EMR 19:20 → 2E 21:20 → EDBEDREQ 21:44
DX: G43.909 Migraine, unspecified, not intractable, without status migrainosus (principal); I24.9 Acute ischemic heart disease, unspecified; R11.2 Nausea with vomiting, unspecified; F32.9 Major depressive disorder, single episode, unspecified; Z88.0 Allergy status to penicillin; I51.4 Myocarditis, unspecified; B34.9 Viral infection, unspecified; R74.8 Abnormal levels of other serum enzymes
CPT/HCPCS: 36415; 70544; 70548; 70553; 78452; 80053; 81003; 82550; 83605; 84484; 85025; 85610; 85651; 85730; 86140; 87040; 93005; 93017; 93306; 96361; 96374; 96375; 99285; A9585; J2765; J7030